=== PATIENT | female | born 1980 | race Caucasian/White ===

== ENCOUNTER → 2020-05-14 | Outpatient (CLI) | payer OTHER ==
[~2020-05-14] MED LIST: ALBU90OI61 INH; LEVFLO500 PO; Mirena1 EACH VG; NAPR220 PO; Norco 5-325 Ta1 EACH PO; Zofran4 MG PO
[2020-05-14 17:18] LABS: Influenza A, PCR Negative (NEGATIVE); Influenza B, PCR Negative (NEGATIVE); Resp Syncytial Virus, PCR Negative (NEGATIVE); SARS-Cov-2 (COVID-19) PCR, MMC Negative (NEGATIVE)
== END | disposition home or self-care (01) ==
LOC: LAB 16:34 → LAB SHORT 16:34
PROVIDERS: Anesthesiology
DX: Z11.59 Encounter for screening for other viral diseases (principal)
CPT/HCPCS: 0241U

== ENCOUNTER → 2022-05-23 | Outpatient (CLI) | payer OTHER | END | disposition home or self-care (01) | LOC: LAB SHORT 14:40 | DX: R31.9 Hematuria, unspecified (principal) | CPT/HCPCS: 87086 ==

== ENCOUNTER 2023-04-22 06:33 | Day surgery (SDC) | payer OTHER ==
[2023-04-22] VITALS (8 sets, daily range): BP systolic 119–128; BP diastolic 56–95
[~2023-04-22] VITALS: Ht 176 cm; Wt 117.2 kg
--- NOTE | 2023-04-22 07:57 | NUR ---
History, Chart, Medications and Allergies reviewed before start of procedure. Ambulatory in Day Surgery. Pre-Op teaching done. Pt verbalizes understanding. Patient confirms NPO status and agrees with scheduled surgery. Patient reports completing Chlorhexadine shower X2 prior to admission to hospital. Surgical site prepped with 2% Chlorhexidine cloth wipe. Lungs clear T/O to Auscultation. Patient States Post-Procedure ride home has been arranged.
--- NOTE | 2023-04-22 10:20 | NUR ---
Patient up to Ambulate independently. Gait steady. Discharge instructions reviewed with patient. Patient verbalizes understanding. Copy given to patient to take home, [facility]. Patient States Post-Procedure ride home has been arranged. Discharged via wheelchair to private car for ride home. PT REPORTS NAUSEA BETTER. DECLINES PAIN MEDICATION. REPORTS READY TO GO HOME.
== END 2023-04-22 10:20 | disposition home or self-care (01) ==
LOC: ORSCMMR 06:33
DX: K81.1 Chronic cholecystitis (principal); F17.210 Nicotine dependence, cigarettes, uncomplicated; K21.9 Gastro-esophageal reflux disease without esophagitis; Z68.38 Body mass index [BMI] 38.0-38.9, adult
CPT/HCPCS: 74300; 88304; A9270; C1894; J0694; J1100; J1885; J2405; J2704; J2765; J3010; J7120

== ENCOUNTER → 2023-05-05 | Outpatient (CLI) | payer OTHER | LOC: LAB SHORT 18:01 → LAB 18:01 | DX: N39.0 Urinary tract infection, site not specified (principal) | CPT/HCPCS: 87077; 87086; 87186 ==

== ENCOUNTER → 2024-10-05 | Outpatient (CLI) | payer BC, OTHER | LOC: LAB SHORT 13:50 → LAB 13:50 | DX: N39.0 Urinary tract infection, site not specified (principal) | CPT/HCPCS: 87086 ==

== ENCOUNTER → 2025-04-03 | Outpatient (CLI) | payer BC, OTHER | LOC: LAB 09:30 → LAB SHORT 09:30 | PROVIDERS: Nurse Practitioner Family | DX: Z01.419 Encounter for gynecological examination (general) (routine) without abnormal findings (principal) | CPT/HCPCS: 87624; G0145 ==